=== PATIENT | female | born 1990 | race Asian ===

== ENCOUNTER 2017-02-04 14:40 | Inpatient (IN) | payer SELFPAY ==
[~2017-02-04] VITALS: Ht 164 cm; Wt 99.8 kg
[2017-02-04] MEDS: LACTATED RINGERS 1,000 ML IV SCH ×2 (10:48→15:27)
[2017-02-04] MEDS ORDERED: SYNTHROID0.05 MG PO (15:09)
[2017-02-04] MEDS ORDERED: CARBOPROST 250 MCG/ML AMP IM PRN (15:10)
[2017-02-04] MEDS ORDERED: PROMETHAZINE 25 MG/ML VIAL IVP PRN (15:10)
[2017-02-04] MEDS ORDERED: METHYLERGONOVINE 0.2 MG/ML AMP IM PRN (15:10)
[2017-02-04] MEDS ORDERED: OXYTOCIN 10 UNITS/ML VIAL IM SCH (15:10)
[2017-02-04] MEDS ORDERED: CLINDAMYCIN 900 MG in DEXTROSE 5% 100 ML IV SCH (16:00)
[2017-02-04 16:08] VITALS: BP 125/70
[2017-02-04] MEDS ORDERED: MORPHINE SULFATE 10 MG/ML SYR IVP PRN (17:45)
[2017-02-04] MEDS ORDERED: MORPHINE SULFATE 10 MG/ML SYR ONE (17:52)
[2017-02-04] MEDS ORDERED: PROMETHAZINE 25 MG/ML VIAL ONE (17:52)
[2017-02-04] MEDS ORDERED: OXYTOCIN 20 UNITS/LR PREMIX 1,000 ML IV ONE (17:53)
[2017-02-04] MEDS ORDERED: OXYTOCIN 20 UNITS/LR PREMIX 1,000 ML IV SCH (22:00)
[2017-02-05] MEDS ORDERED: ROPIVACAINE 0.2%/NS PREMIX 250 ML EPI ONE (00:55)
--- NOTE | 2017-02-05 09:54 | NUR ---
PATIENT HAS BEEN SCREENED AND CATEGORIZED LOW NUTRITION RISK. PATIENT WILL BE SEEN WITHIN 7 DAYS OF ADMISSION. 02/11/[address]
[2017-02-05] MEDS ORDERED: OXYTOCIN 10 UNITS/ML VIAL ONE (10:13)
[2017-02-05] MEDS ORDERED: MEASLES, MUMPS, AND RUBELLA 1 VIAL SQVAC PRN (14:30)
[2017-02-05] MEDS ORDERED: BENZOCAINE/MENTHOL 20%-0.5% 60 GM CAN TP PRN (14:30)
[2017-02-05] MEDS ORDERED: WITCH HAZEL 40 PAD PACKAGE TP PRN (14:30)
[2017-02-05] MEDS ORDERED: METHYLERGONOVINE 0.2 MG/ML AMP IM PRN (14:30)
[2017-02-05] MEDS ORDERED: OXYTOCIN 10 UNITS/ML VIAL IM PRN (14:30)
[2017-02-05] MEDS ORDERED: TEMAZEPAM 15 MG CAP PO PRN (14:30)
[2017-02-05] MEDS ORDERED: oxyCODONE/APAP 5/325 MG 1 TAB TAB PO PRN (14:30)
[2017-02-05] MEDS ORDERED: oxyCODONE/APAP 5/325 MG 1 TAB TAB ONE (14:43)
[2017-02-05] MEDS: IBUPROFEN 800 MG TAB PO PRN (18:21)
[2017-02-05] MEDS ORDERED: DOCUSATE SOD/SENNA 50/8.6 MG 1 TAB PO SCH (21:00)
[2017-02-05] MEDS: HYDROcodone/APAP 5/325 MG 1 TAB TAB PO PRN (22:03)
[2017-02-06] MEDS: IBUPROFEN 800 MG TAB PO PRN ×2 (04:03→12:23)
[2017-02-06] MEDS: HYDROcodone/APAP 5/325 MG 1 TAB TAB PO PRN (08:23)
== END 2017-02-06 17:20 | disposition home or self-care (01) | DRG 775 ==
LOC: MLD 14:40 → MFCC 02-05 14:25
PROVIDERS: ADMIT Obstetrics & Gynecology; ATTEND Obstetrics & Gynecology
PROC: 10E0XZZ Delivery of Products of Conception, External Approach (ICD-10-PCS; principal; 2017-02-05)
PROC: 10907ZC Drainage of Amniotic Fluid, Therapeutic from Products of Conception, Via Natural or Artificial Opening (ICD-10-PCS; 2017-02-05)
PROC: 0HQ9XZZ Repair Perineum Skin, External Approach (ICD-10-PCS; 2017-02-05)
PROC: 00HU33Z Insertion of Infusion Device into Spinal Canal, Percutaneous Approach (ICD-10-PCS; 2017-02-05)
PROC: 3E0R3CZ (ICD-10-PCS; 2017-02-05)
PROC: 3E0234Z Introduction of Serum, Toxoid and Vaccine into Muscle, Percutaneous Approach (ICD-10-PCS; 2017-02-05)
DX: O69.81X0 Labor and delivery complicated by cord around neck, without compression, not applicable or unspecified (principal); O70.0 First degree perineal laceration during delivery; O99.214 Obesity complicating childbirth; E66.9 Obesity, unspecified; Z68.37 Body mass index [BMI] 37.0-37.9, adult; Z3A.39 39 weeks gestation of pregnancy; Z37.0 Single live birth; Z23 Encounter for immunization; Z88.8 Allergy status to other drugs, medicaments and biological substances